=== PATIENT | male | born 1940 | race Caucasian/White ===

== ENCOUNTER 2023-07-17 08:23 | Day surgery (SDC) | payer MEDICARE ==
[~2023-07-17] VITALS: Ht 180.3 cm; Wt 101.0 kg
[2023-07-17] VITALS (7 sets, daily range): BP systolic 109–152; BP diastolic 53–66; PULSE 54–74; TEMP 97.3–97.6
[2023-07-17] MEDS ORDERED: IMDUR 60MG60 MG/TAB PO (09:24)
[2023-07-17] MEDS ORDERED: COREG12.5 MG PO (09:25)
[2023-07-17] MEDS ORDERED: DEMADEX 20MG20 M1 PO (09:25)
[2023-07-17] MEDS ORDERED: ZAROXOLYN 2.52.5 MG PO (09:27)
[2023-07-17] MEDS ORDERED: SODIUM BICARBO650 MG PO (09:28)
[2023-07-17] MEDS ORDERED: FLEXERIL 1010 MG/TAB PO (09:28)
[2023-07-17] MEDS ORDERED: CVS SPECTRAVIT1 EA15 PO (09:29)
[2023-07-17] MEDS ORDERED: PROTONIX 40MG T40 MG PO (09:29)
[2023-07-17] MEDS ORDERED: MASON NATURAL2000 IU PO (09:30)
[2023-07-17] MEDS ORDERED: FERROUSAL325 MG PO (09:31)
[2023-07-17] MEDS ORDERED: NORVASC 10MG10 MG PO (09:31)
[2023-07-17] MEDS ORDERED: ASPIRIN 81M81 MG/TA2 PO (09:32)
[2023-07-17] MEDS ORDERED: PLAVIX 75MG TAB75 MG PO (09:32)
[2023-07-17] MEDS ORDERED: FLOMAX 0.40.4 MG/CAP PO (09:33)
[2023-07-17] MEDS ORDERED: CRESTOR20 MG PO (09:33)
[2023-07-17] MEDS ORDERED: NORCO 325 MG-51 TAB PO (09:35)
[2023-07-17] MEDS ORDERED: LR 1,000 ML IV SCH (09:45)
[2023-07-17 10:35] LABS: CALCIUM 7.7 mg/dL (8.4-10.2); CREATININE, serum 4.49 mg/dL (0.72-1.25); POTASSIUM 4.8 mmol/L (3.5-4.5)
[2023-07-17] MEDS ORDERED: NS 10 ML IV ONE (11:10)
[2023-07-17] MEDS ORDERED: hydrALAZINE 20 MG/ML 1 ML VIAL IV PRN (11:15)
[2023-07-17] MEDS ORDERED: fentaNYL 50 MCG/ML 2 ML VIAL IV PRN ×2 (11:15)
[2023-07-17] MEDS ORDERED: Ondansetron 4 MG/2 ML VIAL IV PRN ×2 (11:15→12:00)
[2023-07-17] MEDS ORDERED: HYDROmorphone 2 MG/1 ML VIAL IV PRN (11:15)
[2023-07-17] MEDS ORDERED: droPERidol 2.5 MG/ML 2 ML VIAL IV PRN (11:15)
[2023-07-17] MEDS ORDERED: Acetaminophen 325 MG TAB PO PRN (12:00)
--- NOTE | 2023-07-17 12:03 | NUR ---
PATIENT RETURNED TO ROOM 7 VIA CART, ALERT AND ORIENTED X3. DENIES PAIN, NAUSEA AND SHORTNESS OF BREATH. BREATHING REGULAR AND UNLABORED ON ROOM AIR. SKIN WARM AND DRY. BILATERAL RADIAL PULSES STRONG AND REGULAR. 2+ PITTING EDEMA BLE, PRESENT PRIOR TO PROCEDURE PER ANESTHESIA. HANDOFF COMPLETED IN ROOM BY OR NURSE JUAN PABLO Nicholson RN AND TIANNA Carvalho CRNA. VISIBLE DIALYSIS CATHETER WITH TEGADERM DRESSING TO RIGHT CHEST. DRESSING IS CLEAN, DRY AND INTACT. VISIBLE BANDAID TO RIGHT SIDE OF NECK. SITE IS CLEAN, DRY AND INTACT. SEE CHART FOR VITAL SIGNS. CALL LIGHT IN REACH. PATIENT HAD JUICE, APPLESAUCE AND PUDDING. FOOD AND DRINK TOLERATED WELL.
--- NOTE | 2023-07-17 13:24 | NUR ---
PATIENT INFORMED NURSE THAT HE HAD DIALYSIS SCHEDULED TODAY BUT WAS UNSURE OF TIME AND LOCATION. PRIMARY NURSE CALLED [facility] TO CONFIRM PATIENTS DIALYSIS APPOINTMENT. COMMUNICATED TO PATIENT LOCATION OF DIALYSIS CENTER WELL TIME OF APPOINTMENT TODAY. PATIENT VERBALIZED UNDERSTANDING. 1310: PATIENT AMBULATED TO RESTROOM WITH STEADY GAIT AND VOIDED WITHOUT DIFFICULTY. 1316: DISCHARGE TEACHING COMPLETED WITH PRINTED EDUCATION AND INSTRUCTIONS SENT HOME WITH PATIENT. PATIENT VERBALIZED UNDERSTANDING OF INSTRUCTIONS. 1320: PATIENT DENIES PAIN. RIGHT CHEST AND NECK DRESSINGS CLEAN, DRY AND INTACT. IV REMOVED. GAUZE AND COBAN PLACED OVER SITE. 1324: PATIENT DISCHARGED HOME [facility].
== END 2023-07-17 13:24 | disposition home or self-care (01) ==
LOC: SDCO 08:23
PROVIDERS: Surgery
DX: E11.22 Type 2 diabetes mellitus with diabetic chronic kidney disease (principal); I12.0 Hypertensive chronic kidney disease with stage 5 chronic kidney disease or end stage renal disease; N18.6 End stage renal disease; F17.210 Nicotine dependence, cigarettes, uncomplicated; Z89.429 Acquired absence of other toe(s), unspecified side; Z95.1 Presence of aortocoronary bypass graft; Z95.5 Presence of coronary angioplasty implant and graft
CPT/HCPCS: C1750; J0690; J1644; J2704; J7120

== ENCOUNTER 2023-07-25 09:29 | Emergency (ER) | payer MEDICARE ==
[~2023-07-25] VITALS: Ht 27.9 cm; Wt 99.1 kg
[~2023-07-25 09:29] MED LIST: ASPIRIN 81M81 MG/TA2 PO; COREG12.5 MG PO; CRESTOR20 MG PO; CVS SPECTRAVIT1 EA15 PO; DEMADEX 20MG20 M1 PO; FERROUSAL325 MG PO; FLEXERIL 1010 MG/TAB PO; FLOMAX 0.40.4 MG/CAP PO; IMDUR 60MG60 MG/TAB PO; MASON NATURAL2000 IU PO; NORCO 325 MG-51 TAB PO; NORVASC 10MG10 MG PO; PLAVIX 75MG TAB75 MG PO; PROTONIX 40MG T40 MG PO; SODIUM BICARBO650 MG PO; ZAROXOLYN 2.52.5 MG PO
[2023-07-25 09:32] VITALS: TEMP 97.7
[2023-07-25 09:46] LABS: BASO % 0.5 % (0.0-2.0); EOS # 0.2 K/mm3 (0.0-0.7); EOS % 2.7 % (0.0-4.0); GRAN # 6.8 K/mm3 (1.4-6.5); GRAN % 82.4 % (42.2-75.2); LYMPH # 0.9 K/mm3 (1.2-3.4); LYMPH % 10.5 % (20.0-51.0); MEAN CELL VOLUME 103 fl (80.0-100.0); MEAN CORPUSCULAR HGB CONC 30 g/dl (33.0-37.0); MEAN PLATELET VOLUME 10.6 fl (7.4-10.4); MONO # 0.3 K/mm3 (0.1-0.6); MONO % 3.2 % (1.7-9.3); PLATELET COUNT 182 K/mm3 (130-400); RED BLOOD COUNT 2.66 M/mm3 (4.20-5.60); REDCELL DISTRIBUTION WIDTH-CV 15.9 % (11.5-14.5)
[2023-07-25 09:53] LABS: HEMATOCRIT 27.3 % (42.0-52.0); HEMOGLOBIN 8.3 g/dl (13.5-18.0); MEAN CORPUSCULAR HEMOGLOBIN 31 pg (27-31)
[2023-07-25 09:57] LABS: PROTHROMBIN TIME 11.3 SECONDS (9.7-12.8)
[2023-07-25 10:11] LABS: ALBUMIN 3.2 gm/dL (3.4-4.8); BILIRUBIN,TOTAL 0.4 mg/dL (0.2-1.2); CALCIUM 9.3 mg/dL (8.4-10.2); CREATININE, serum 2.11 mg/dL (0.72-1.25); POTASSIUM 4.1 mmol/L (3.5-4.5); TOTAL PROTEIN 6.6 gm/dL (6.2-8.1)
[2023-07-25 10:20] LABS: TROPONIN-I 1.154 ng/mL (0.00-0.033)
[2023-07-25 13:16] VITALS: BP 144/76; PULSE 80
== END 2023-07-25 13:21 | disposition home or self-care (01) ==
LOC: COL.ER 09:29
PROVIDERS: Emergency Medicine
DX: R07.89 Other chest pain (principal); R79.89 Other specified abnormal findings of blood chemistry; E11.22 Type 2 diabetes mellitus with diabetic chronic kidney disease; N18.6 End stage renal disease; F17.210 Nicotine dependence, cigarettes, uncomplicated; Z99.2 Dependence on renal dialysis; Z86.79 Personal history of other diseases of the circulatory system; Z95.1 Presence of aortocoronary bypass graft

== ENCOUNTER 2023-09-08 09:44 | Day surgery (SDC) | payer MEDICARE ==
[2023-09-08] VITALS (7 sets, daily range): BP systolic 134–151; BP diastolic 59–75; PULSE 54–62; TEMP 97.1–97.9
[~2023-09-08] VITALS: Ht 177.8 cm; Wt 94.5 kg
[~2023-09-08 09:44] MED LIST changes: +NS 1,000 ML IV SCH
[2023-09-08] MEDS ORDERED: Lidocaine PF 2% (20 MG/ML) 5 ML VIAL ONE (11:27)
[2023-09-08] MEDS ORDERED: Rocuronium 50 MG/5 ML Multi-Dose VIAL ONE (11:27)
[2023-09-08] MEDS ORDERED: fentaNYL 50 MCG/ML 2 ML VIAL ONE (11:27)
[2023-09-08] MEDS ORDERED: Ondansetron 4 MG/2 ML VIAL ONE (11:28)
[2023-09-08] MEDS ORDERED: dexAMETHasone 10 MG/ML VIAL ONE (11:28)
[2023-09-08] MEDS ORDERED: NS 10 ML IV ONE (11:28)
--- NOTE | 2023-09-08 12:30 | NUR ---
DISCUSSED WITH PATIENT REPORT OF PLAVIX LAST DOSE ON 07/12/23. PER PATIENT HE WAS INSTRUCTED TO HOLD THE PLAVIX 5 DAYS PRIOR TO HIS TUNNELED HEMOCATH INSERTION AND WAS INSTRUCTED BY TO NOT RESUME THE MEDICATION AFTER THE PROCEDURE. OKAY TO PROCEED WITH PROCEDURE TODAY.
[2023-09-08 12:36] LABS: CREATININE, serum 3.01 mg/dL (0.72-1.25)
[2023-09-08] MEDS ORDERED: Ondansetron 4 MG/2 ML VIAL IV PRN ×2 (12:45→14:00)
[2023-09-08] MEDS ORDERED: hydrALAZINE 20 MG/ML 1 ML VIAL IV PRN (12:45)
[2023-09-08] MEDS ORDERED: HYDROmorphone 2 MG/1 ML VIAL IV PRN (12:45)
[2023-09-08] MEDS ORDERED: droPERidol 2.5 MG/ML 2 ML VIAL IV PRN (12:45)
[2023-09-08] MEDS ORDERED: IRON PO (12:51)
[2023-09-08] MEDS ORDERED: Glycopyrrolate 0.2 MG/ML 1 ML VIAL ONE ×2 (13:04→14:31)
[2023-09-08] MEDS ORDERED: Topical Skin Adhesive 1 EACH (1 ML) TOP ONE (13:30)
[2023-09-08] MEDS ORDERED: NORCO 325 MG-51 TAB PO (13:47)
[2023-09-08] MEDS ORDERED: Acetaminophen 325 MG TAB PO PRN (14:00)
--- NOTE | 2023-09-08 16:15 | NUR ---
1500 RETURNS TO ROOM 5 PER CART. AWAKE, ALERT. RESP UNLABORED. HOB ELEVATED 30 DEGREES. ABD ROUND, SOFT, VISIBLE INCISION SITES X 3 INTACT. PD CATHETER SITE WITH DRESSING CLEAN DRY AND INTACT. VITAL SIGNS OBTAINED. REPORTS MILD ABD DISCOMFORT. CALL LIGHT AT SIDE. DAUGHTER IN ROOM 1515 HOB ELEVATED 70 DEGREES. TOLERATES PO WATER AND COFFE WITHOUT NAUSEA 1530 AWAKE, ALERT. CONVERSES WITH DAUGHTER. 1550 DISCHARGE INSTRUCTIONS REVIEWED. PATIENT VERBALIZES UNDERSTANDING. COPY PROVIDED IN DISCHARGE FOLDER 1605 SITS ON EDGE OF CART. DRESSES SELF. DENIES NEED FOR ASSISTANCE DRESSING
== END 2023-09-08 16:15 | disposition home or self-care (01) ==
LOC: SDCO 09:44
PROVIDERS: Surgery
DX: K42.9 Umbilical hernia without obstruction or gangrene (principal); I12.0 Hypertensive chronic kidney disease with stage 5 chronic kidney disease or end stage renal disease; N18.6 End stage renal disease; E11.22 Type 2 diabetes mellitus with diabetic chronic kidney disease; G47.33 Obstructive sleep apnea (adult) (pediatric); F17.210 Nicotine dependence, cigarettes, uncomplicated; Z79.82 Long term (current) use of aspirin; Z79.899 Other long term (current) drug therapy; Z99.2 Dependence on renal dialysis
CPT/HCPCS: C1750; C1781; J0690; J1100; J1170; J2405; J2704; J3010; J7030

== ENCOUNTER 2023-12-14 14:54 | Emergency (ER) | payer MEDICARE ==
[~2023-12-14] VITALS: Ht 180.3 cm; Wt 86.4 kg
[~2023-12-14 14:54] MED LIST changes: +IRON PO; -NS 1,000 ML IV SCH
[2023-12-14 14:56] VITALS: TEMP 97.7
[2023-12-14] MEDS ORDERED: NS 500 ML IV ONE (15:30)
[2023-12-14] MEDS ORDERED: methylPREDNISolone Sod Succ 125 MG/2 ML VIAL IV ONE (15:30)
[2023-12-14 16:18] LABS: BASO % 0.2 % (0.0-2.0); EOS # 0.1 K/mm3 (0.0-0.7); EOS % 0.7 % (0.0-4.0); GRAN # 7.8 K/mm3 (1.4-6.5); GRAN % 82.8 % (42.2-75.2); HEMATOCRIT 46.3 % (42.0-52.0); HEMOGLOBIN 14.9 g/dl (13.5-18.0); LYMPH # 1.1 K/mm3 (1.2-3.4); LYMPH % 11.6 % (20.0-51.0); MEAN CELL VOLUME 90 fl (80.0-100.0); MEAN CORPUSCULAR HEMOGLOBIN 29 pg (27-31); MEAN CORPUSCULAR HGB CONC 32 g/dl (33.0-37.0); MEAN PLATELET VOLUME 9.6 fl (7.4-10.4); MONO # 0.4 K/mm3 (0.1-0.6); MONO % 4.4 % (1.7-9.3); PLATELET COUNT 293 K/mm3 (130-400); RED BLOOD COUNT 5.12 M/mm3 (4.20-5.60); REDCELL DISTRIBUTION WIDTH-CV 14.8 % (11.5-14.5)
[2023-12-14 16:59] LABS: ALBUMIN 3.1 g/dL (3.4-4.8); BILIRUBIN,TOTAL 0.7 mg/dL (0.2-1.2); CALCIUM 9.1 mg/dL (8.4-10.2); CREATININE, serum 3.47 mg/dL (0.72-1.25); POTASSIUM 5.7 mEq/L (3.5-4.5)
[2023-12-14 17:40] VITALS: BP 176/94; PULSE 84
== END 2023-12-14 17:48 | disposition home or self-care (01) ==
LOC: COL.ER 14:54
PROVIDERS: Personal Emergency Response Attendant
DX: T78.40XA Allergy, unspecified, initial encounter (principal); R00.1 Bradycardia, unspecified; I12.0 Hypertensive chronic kidney disease with stage 5 chronic kidney disease or end stage renal disease; E11.22 Type 2 diabetes mellitus with diabetic chronic kidney disease; N18.6 End stage renal disease; Z99.2 Dependence on renal dialysis
CPT/HCPCS: J2919; J7040